=== PATIENT | male | born 1955 | race Caucasian/White ===

== ENCOUNTER 2019-03-16 20:51 | Inpatient (IN) ==
[2019-03-16 21:48] LABS: BASO# 0.01 X1000 (0.0-0.2); BASO% 0.1 % (0.0-0.8); EOS# 0.16 X1000 (0.0-0.7); EOS% 2.1 % (0.0-10.0); HEMATOCRIT 45.6 % (42.0-52.0); HEMOGLOBIN 15.5 g/dL (14.0-18.0); IMM GRAN# 0.02 X1000 (0.0-0.04); IMM GRAN% 0.3 % (0.0-0.5); LYMPH# 1.76 X1000 (1.2-3.4); MCV 91.2 FL (81-99); MONO# 0.66 X1000 (0.11-0.59); MONO% 8.6 % (1.7-9.3); MPV 9.3 FL (7.4-10.4); NEUT# 5.04 X1000 (1.4-6.5); NEUT% 65.9 % (42.2-75.2); PLT 209 X1000 (130-400); RDW 13.1 % (11.5-14.5); WBC 7.65 X1000 (4.8-10.8)
[2019-03-16 22:00] LABS: AGAP 12; ALBUMIN 4.5 g/dL (3.5-5.0); ALKALINE PHOSPHATASE 72 U/L (32-122); BUN 12 mg/dL (8-22); CHLORIDE 104 mmol/L (98-107); COSMO 287; CREATININE 0.9 mg/dL (0.7-1.2); ESTIMATED GFR > 60; GLUCOSE 181 mg/dL (70-104); GOT 34 U/L (10-34); GPT 55 U/L (10-44); POTASSIUM 4.2 mmol/L (3.5-5.1); SODIUM 142 mmol/L (136-145); TCO2 26 mmol/L (25-35); TOTAL PROTEIN 7.2 g/dL (6.3-8.3)
[2019-03-16] MEDS ORDERED: ZOFRAN IV ONE (22:01)
[2019-03-16 22:07] LABS: BILIRUBIN URINE NEGATIVE (NEGATIVE); BLOOD URINE NEGATIVE (NEGATIVE); CLARITY CLEAR (CLEAR); COLOR YELLOW; KETONE URINE NEGATIVE (NEGATIVE); LEUKOCYTES URINE NEGATIVE (NEGATIVE); NITRITE URINE NEGATIVE (NEGATIVE); PROTEIN URINE TRACE mg/dL (NEGATIVE); SP GRAVITY URINE 1.005; URINE BACTERIA 1+ /HFP; URINE CAST NONE SEEN /LPF; URINE CRYSTAL NONE SEEN /HPF; URINE EPITHELIAL CELLS <10 /HPF (<10); URINE WBC <10 /HPF (<10); URINE YEAST NONE SEEN /HPF; UROBILINOGEN URINE NORMAL
--- NOTE | 2019-03-16 22:07 | PROVIDER DOCUMENTATION ---
This chart was entered by Grace Evans Scribe, acting as scribe for Renae Reyes CRNP. HPI-Abdominal Pain/GI Problem <Ernie Oshea - Last Filed: 03/17/19 00:34> - General Source: patient - History of Present Illness-ABD Nature of Presenting Problems: pt is a 64 yr old male presenting with 1 day complaint of diffuse abdominal pain, nausea and vomiting, pt admits hx of hernia for "years" reports he is no longer able to reduce it, admits painful to touch. no fever/chills, no diarrhea or constipation Abdominal Pain Onset Location: reports: generalized abdomen Pain Radiation: reports: no radiation Quality of Pain: reports: aching Severity in ED: reports: moderate Onset/Duration: reports: this morning Timing: reports: getting worse Activities at Onset: reports: light activity Exposure to sick contacts?: No Modifying Factors: improves with: nothing Associated Symptoms: reports: nausea, vomiting. denies: chest pain, constipation, diarrhea, fever/chills, shortness of breath Last BM: unsure Dark Stools Present?: reports: none noticed Rectal Bleeding: reports: none Rectal Pain: reports: none Bruising or Bleeding Gums?: No Similar Symptoms Previously?: No Recently seen or treated by another doctor?: No <Renae Reyes - Last Filed: 03/17/19 00:44> - General Chief Complaint: Abdominal Pain Stated Complaint: ABD PAIN Time Seen by Provider: 03/16/19 20:59 Allergies/Adverse Reactions: Patient Allergies Allergy/AdvReac Type Severity Reaction Status Date / Time erythromycin base AdvReac Intermediate VOMITING Verified 03/16/19 21:00 [Erythromycin Base] Home Medications: Home Medication List Medication Instructions Recorded Confirmed Last Taken Type LISINOpril [Prinivil] 20 mg PO QAM 12/14/12 03/16/19 05/21/15 08:00 History Atorvastatin Calcium [Lipitor] 80 mg PO HS #90 tablet 12/17/12 03/16/19 05/20/15 21:00 Rx Glipizide [Glipizide Xl] 10 mg PO BID 05/21/15 03/16/19 05/21/15 08:00 History Insulin Glargine [Lantus] 30 units SUBQ QHS 05/21/15 03/16/19 05/20/15 21:00 History Metformin E.r. [Glucophage Xr] 1 tab PO BID 05/21/15 03/16/19 05/21/15 08:00 History [place]-3 Fatty Acids/Fish Oil 1 cap PO DAILY 05/21/15 03/16/19 05/21/15 08:00 H istory [[place] 3 1,000 mg Softgel] Canagliflozin/Metformin HCl 1 tab PO BID 03/16/19 03/16/19 Unknown History [Invokamet 150-500 mg Tablet] Metoprolol Succinate E.r. [Toprol 25 mg PO PRN PRN 03/16/19 03/16/19 Unknown History Xl] Review of Systems - Adult - REVIEW OF SYSTEMS - ADULT Constitutional: denies: chills, fever Eyes: reports: no symptoms reported Ears, Nose, Mouth & Throat: reports: no symptoms reported Cardiovascular: denies: chest pain Respiratory: denies: shortness of breath Gastrointestinal: reports: abdominal pain, nausea, vomiting. denies: diarrhea Genitourinary: reports: no symptoms reported Musculoskeletal: reports: no symptoms reported Integumentary: reports: no symptoms reported Neurological: denies: dizziness/vertigo, headache/migraines Psychiatric: reports: no symptoms reported Endocrine: reports: no symptoms reported Hematologic/Lymphatic: reports: no symptoms reported Allergic/Immunologic: reports: no symptoms reported All Other Systems: Reviewed and Negative <Renae Reyes - Last Filed: 03/17/19 00:44> Past History - Adult - PAST MEDICAL HISTORY-ADULT Review of Records: reports: Old Records Reviewed, Nursing Assessment Review, Medications Reviewed, Social history reviewed & non-contributory. Major Childhood Illnesses: reports: denies history Cardiovascular: reports: other (SVT) Respiratory: reports: denies history Gastrointestinal: reports: denies history Obstetrical/Gynecological: reports: denies history Genitourinary: reports: denies history Musculoskeletal: reports: denies history Neurological: reports: denies history Endocrine/Immune: reports: denies history Other Conditions: reports: denies history - IMMUNIZATION STATUS Childhood Immunizations: See Nurse Assessment Flu Vaccine: See Nurse Assessment - FAMILY HISTORY Family History: reviewed, not pertinent - SOCIAL HISTORY Smoking: quit greater than 1 year Substance Use: alcohol Alcohol Use Frequency: occasionally Living Situation: family <Renae Reyes - Last Filed: 03/17/19 00:44> Physical Exam-General - PHYSICAL EXAM-ADULT Initial Vital Signs Reviewed: Yes - CONSTITUTIONAL General Appearance: alert, no apparent distress, obese - EYES Eyes: PERRL/EOMI - HEAD, EARS, NOSE, MOUTH & THROAT HENMT: normocephalic/atraumatic, moist mucous membranes - NECK Neck: non-tender, full range of motion, supple, normal inspection - RESPIRATORY Respiratory: chest non-tender, lungs clear, normal breath sounds, no respiratory distress, no accessory muscle use - CARDIOVASCULAR Cardiovascular: normal peripheral pulses, regular rate, rhythm - GASTROINTESTINAL (ABDOMEN) Abdominal Exam: normal bowel sounds, tenderness (periumbilical), hernia (left of umbilicus, non reducable) - LYMPHATIC Lymphatic: no adenopathy - MUSCULOSKELETAL Back Exam: normal inspection Extremity: normal range of motion, non-tender, normal gait, normal inspection - SKIN Integumentary: normal color, normal turgor, warm/dry - NEUROLOGIC Neurologic: grossly normal - PSYCHIATRIC Psych/Mental Status: normal mood/affect <Renae Reyes - Last Filed: 03/17/19 00:44> Progress - PLAN OF CARE/RESULTS Progress/Plan/Lab Results: Vital Signs - 8 hr 03/16/19 20:54 03/16/19 23:43 03/17/19 00:19 Temperature 98.4 F 97.8 F Pulse Rate 89 67 77 Respiratory Rate 20 22 18 Blood Pressure 164/82 134/93 175/89 O2 Sat by Pulse Oximetry 97 96 95 Laboratory Results - last 24 hr 03/16/19 03/16/19 03/16/19 21:30 21:30 21:45 WBC 7.65 RBC 5.00 Hgb 15.5 Hct 45.6 MCV 91.2 MCH 31.0 MCHC 34.0 RDW Std Deviation 13.1 Plt Count 209 MPV 9.3 Immature Gran % (Auto) 0.3 Neut % (Auto) 65.9 Lymph % (Auto) 23.0 [place] % (Auto) 8.6 Eos % (Auto) 2.1 Baso % (Auto) 0.1 Immature Gran # (Auto) 0.02 Neut # (Auto) 5.04 Lymph # (Auto) 1.76 [place] # (Auto) 0.66 H Eos # (Auto) 0.16 Baso # (Auto) 0.01 Sodium 142 Potassium 4.2 Chloride 104 Carbon Dioxide 26 Anion Gap 12 BUN 12 Creatinine 0.9 Estimated GFR/1.73 m2 > 60 BUN/Creatinine Ratio 13 Glucose 181 H Calculated Osmolality 287 Calcium 10.0 Total Bilirubin 0.60 AST 34 ALT 55 H Alkaline Phosphatase 72 Total Protein 7.2 Albumin 4.5 Globulin 3.0 Albumin/Globulin Ratio 2.0 Urine Source CLEAN CATCH Urine Color YELLOW Urine Clarity CLEAR Urine pH 7.0 Ur Specific [place] 1.005 Urine Protein TRACE A Urine Ketones NEGATIVE Urine Blood NEGATIVE Urine Nitrite NEGATIVE Urine Bilirubin NEGATIVE Urine Urobilinogen NORMAL Urine Microscopic RBC Not Reportable Urine WBC NEGATIVE Urine Microscopic WBC <10 Ur Epithelial Cells <10 Urine Crystals NONE SEEN Urine Bacteria 1+ Urine Casts NONE SEEN Urine Yeast NONE SEEN Urine Glucose 3+(500 mg/dL) A Orders Category Date Time Status Saline Loc NOW Care 03/16/19 21:[address] ABD/PELVIS W/IV CONT ONLY [CT] Stat Exams 03/16/19 21:05 Taken CBC WITH ELECTRONIC DIFF [HEME] Stat Lab 03/16/19 21:30 Completed COMPREHENSIVE METABOLIC PANEL [CHEM] Stat Lab 03/16/19 21:[address] W/POSS RFLX CULT [URINALYSIS] Stat Lab 03/16/19 21:45 Completed Metoclopramide [Reglan] Med 03/16/19 23:27 Discontinued 10 mg IV NOW ONE Ondansetron [Zofran] Med 03/16/19 22:01 Discontinued 4 mg IV NOW ONE Dr Grande to see pt in the ER and noted that hernia was reduced. Pt noted pain resolved. Dr Grande asked that pt be admitted to obs and will recheck in the am. Result Diagrams: 03/16/19 21:30 03/16/19 21:30 <Ernie Oshea - Last Filed: 03/17/19 00:34> - PLAN OF CARE/RESULTS Progress/Plan/Lab Results: Vital Signs - 8 hr 03/16/19 20:54 Temperature 98.4 F Pulse Rate 89 Respiratory Rate 20 Blood Pressure 164/82 O2 Sat by Pulse Oximetry 97 Orders Category Date Time Status Saline Loc NOW Care 03/16/19 21:[address] ABD/PELVIS W/IV CONT ONLY [CT] Stat Exams 03/16/19 21:05 Ordered CBC WITH ELECTRONIC DIFF [HEME] Stat Lab 03/16/19 21:05 Uncollected COMPREHENSIVE METABOLIC PANEL [CHEM] Stat Lab 03/16/19 21:[address] W/POSS RFLX CULT [URINALYSIS] Stat Lab 03/16/19 21:[address] Grande at bedside for evaluation. Result Diagrams: 03/16/19 21:30 03/16/19 21:30 - CT/MRI 1 CT Study: Abdomen (Umbilical Hernia contains loop of samll bowel with early incarceration and proximal early small bowel obstruction. Chew), Pelvis CT Results: See note - CONSULTS/PCP/HOSPITALIST Notification #1 *Consult/PCP/Hospitalist*: Dr. Grande Time Discussed: 23:25 Reason/Comments: Consult Consult Disposition: Will see in ED <Renae Reyes - Last Filed: 03/17/19 00:44> Departure - Departure Date of Disposition Decision: 03/17/19 Time of Disposition Decision: 00:36 Certified Medical Emergency: Emergent - Critical Care Note This patient required my direct & personal management of CC.: No <Ernie Oshea - Last Filed: 03/17/19 00:34> - Departure Certified Medical Emergency: Emergent - Critical Care Note This patient required my direct & personal management of CC.: No <Renae Reyes - Last Filed: 03/17/19 00:44> - Departure DIAGNOSIS: Abdominal wall hernia Disposition: ADMITTED INPATIENT 09 Condition: Fair Referrals and Follow-Ups: Tobias Cardona MD [Primary Care Provider] - Attestation - Physician/ GADIEL Attestation Patient care was provided by Advanced Practice Provider:: Yes Advanced Practice Provider documentation review:: The Mid-level provider documen tation, treatment plan and medical decision making was reviewed by the physician who agrees with all treatment and medical decision making by the MLP. <Ernie Oshea - Last Filed: 03/17/19 00:34> - Physician/ GADIEL Attestation Patient care was provided by Advanced Practice Provider:: Yes Advanced Practice Provider:: Renae Reyes Advanced Practice Provider documentation review:: The Mid-level provider documentation, treatment plan and medical decision making was reviewed by the physician who agrees with all treatment and medical decision making by the MLP. The physician spent face to face time with patient:: No Advanced Practice Provider documentation review:: Supervising physician onsite and consulted in the evaluation and care of this patient. The physician did not have a face to face encounter with the patient. <Renae Reyes - Last Filed: 03/17/19 00:44> This chart was documented by the indicated scribe, (Grace Evans, Fatimah) and accurately reflects the services I performed and decisions made by me, Renae Reyes CRNP, as attested by the provider's signature.
[2019-03-16 22:08] LABS: URINE SOURCE CLEAN CATCH
[2019-03-16] MEDS ORDERED: REGLAN IV ONE (23:27)
[2019-03-17] MEDS ORDERED: ZOFRAN ODT PO PRN (00:38)
[2019-03-17] MEDS ORDERED: MORPHINE IV PRN (00:38)
[2019-03-17] MEDS ORDERED: NS 1,000 ML IV ONE (00:40)
--- NOTE | 2019-03-17 01:20 | HISTORY AND PHYSICAL ---
CHIEF COMPLAINT: Abdominal pain. HISTORY OF PRESENT ILLNESS: This is a 64-year-old male who was in his usual state of health when he started having severe pain around his umbilicus this evening with associated nausea and vomiting and a bulge or a knot in this area. He thinks he has had a hernia there for some time, but it has not caused him much trouble. His last bowel movement was this evening prior to the pain. There are no relieving factors. It is exacerbated with direct pressure. PAST MEDICAL HISTORY: Diabetes. PAST SURGICAL HISTORY: None pertinent. ALLERGIES: Erythromycin. HOME MEDICATIONS: Invokamet, metformin, Lantus. REVIEW OF SYSTEMS: Ten systems reviewed and negative except as noted above. FAMILY HISTORY: Reviewed and noncontributory. SOCIAL HISTORY: Negative for tobacco. He drinks alcohol occasionally. No illicit drug use. PHYSICAL EXAMINATION: VITAL SIGNS: Temperature 97.8 degrees, pulse 60s to 70s, respiratory rate 18 to 22, blood pressure 129 to 135 systolic, O2 saturation 95 to 96 percent. GENERAL: Well-developed, well-nourished male in no distress who looks his stated age. HEENT: Normocephalic, atraumatic. Extraocular muscles intact. Pupils equal, round, reactive to light. Sclerae anicteric. Moist mucous membranes. Hearing grossly normal. No oral lesions. NECK: Supple. No thyromegaly. CARDIOVASCULAR: Regular rate and rhythm. RESPIRATORY: Bilateral breath sounds. Normal work of breathing. GASTROINTESTINAL: Soft, mildly obese. He is nondistended. There is a reducible umbilical hernia. He is mildly tender here. No rebound or guarding. No mass. No organomegaly. EXTREMITIES: No clubbing, cyanosis, or edema. SKIN: Warm and dry. No rash. MUSCULOSKELETAL: Moves all extremities equally and well. LABORATORY: CBC and complete metabolic profile reviewed and unremarkable. IMAGING: CT of the abdomen and pelvis reviewed which shows an umbilical hernia with a loop of small intestine apparently incarcerated causing some degree of obstruction. ASSESSMENT/PLAN: A 64-year-old male with umbilical hernia originally obstructed and incarcerated, but now it is reduced. He is admitting to decreased pain. We will admit him for observation and gently rehydrate him and re-examine him later today. If he is stable, we will discharge him home and plan elective repair. cc: Sim Grande MD
[2019-03-17 02:20] VITALS: BP 149/85
--- NOTE | 2019-03-17 07:58 | Diag Imaging Result Doc PS360 ---
EXAM: CT ABD/PELVIS W/IV CONT ONLY 03/16/2019 HISTORY: abd pain with bulge TECHNIQUE: This exam was performed using automated exposure control, adjustment of mA or kV according to patient size, and/or use of iterative reconstruction technique. COMMENT: There are no previous studies. There is no evidence of acute disease in the visualized portion of the chest. The spleen is enlarged measuring over 14 cm in AP dimension. The liver is hypodense suggesting fatty change. The appendix is normal in appearance. The pancreas is unremarkable. There are atherosclerotic calcifications in the abdominal aorta and its branches. There is slight dilatation of the infrarenal abdominal aorta to a maximum AP diameter of 2.5 cm. There is no evidence of nephrolithiasis or hydronephrosis. There is no evidence of renal masses. There are granulomata in the liver. There are no apparent gallstones. There is some fluid present in the stomach and small bowel with minimal dilatation of the latter. There is a knuckle of small bowel extending into a ventral hernia just above the umbilicus. This is apparently the focus of obstruction with nondistended small bowel distal. There are no abnormal fluid collections within the abdomen. There is some subcutaneous edema in the anterior abdominal and pelvic carballo. Pelvis: There is no evidence of free fluid. There is some beam hardening artifact from a right hip prosthesis. The urinary bladder is not distended. There is no evidence of significant adenopathy. There is sclerosis in the sacral nathan on the right which is presumably due to degenerative change. There is facet arthropathy bilaterally at L5-S1 and L4-5. No acute bony abnormalities are present. IMPRESSION: Hepatic steatosis. Partial small bowel obstruction due to ventral hernia with incarcerated small bowel loop. Electronically signed by Julio Cesar Walker 03/17/2019 7:55 AM
--- NOTE | 2019-03-17 17:47 | GENERAL SURGERY PROGRESS NOTE ---
DATE: 03/17/2019 SUBJECTIVE: He denies abdominal pain, nausea, or vomiting. OBJECTIVE: He is afebrile. Vital signs are stable.General: He is awake, alert, oriented x3. No acute distress. Gastrointestinal: Soft, nontender, nondistended. The umbilical hernia remains reduced. ASSESSMENT/PLAN: 64-year-old male with recent incarcerated umbilical hernia that has now reduced. His symptoms of obstruction have resolved. He is tolerating a clear liquid diet today. We will discharge him home. He will follow up with me as an outpatient for future elective repair of his hernia. cc: Sim Grande MD
== END 2019-03-17 20:03 | disposition home or self-care (01) | DRG 395 ==
LOC: P.ED 20:51 → INTOOBSV 03-17 01:46 → SUATTDRO 03-17 01:46 → OBSVTOIN 03-17 01:46 → P.MEDSURG 03-17 01:46
PROVIDERS: ADMIT Surgery; ATTEND Surgery